=== PATIENT | male | born 2005 | race Caucasian/White ===

== ENCOUNTER 2025-07-13 10:03 | Emergency (ER) | payer SELFPAY ==
[2025-07-13] MEDS ORDERED: HYDROcodone/Acetaminophen 5/325 mg Tablet ONE (10:49)
[2025-07-13] MEDS ORDERED: Lidocaine 1% PF 5 ML VIAL ONE (10:49)
[2025-07-13] MEDS ORDERED: CEFAZOLIN 1 GM VIAL ONE (10:49)
== END 2025-07-13 12:53 | disposition home or self-care (01) ==
LOC: CSHERS 10:03
DX: S61.412A Laceration without foreign body of left hand, initial encounter (principal); W27.0XXA Contact with workbench tool, initial encounter
CPT/HCPCS: 12042; 96372; J0690